=== PATIENT | male | born 1970 | race Caucasian/White ===

== ENCOUNTER 2024-08-09 04:26 | Emergency (ER) | payer OTHER ==
[2024-08-09] MEDS: Diphtheria,Pertussis(Acell),Tetanus Vaccine 0.5 ML Syringe IM ONE (05:45)
[2024-08-09] MEDS: Lidocaine 1% 10 ML MDV INJECT ONE (05:46)
[2024-08-09] MEDS: Bacitracin Oint 1 GM U/D Packet TOP ONE (05:46)
== END 2024-08-09 07:24 | disposition home or self-care (01) ==
LOC: JP.ED 04:26
DX: S01.112A Laceration without foreign body of left eyelid and periocular area, initial encounter (principal); I10 Essential (primary) hypertension; E66.9 Obesity, unspecified; Z68.43 Body mass index [BMI] 50.0-59.9, adult; Z79.899 Other long term (current) drug therapy; W25.XXXA Contact with sharp glass, initial encounter; V89.2XXA Person injured in unspecified motor-vehicle accident, traffic, initial encounter; Z23 Encounter for immunization
CPT/HCPCS: 12011; 12041; 90471; 90715; 99283; 99283-25

== ENCOUNTER 2024-09-01 07:20 | Day surgery (SDC) | payer OTHER ==
[~2024-09-01 07:20] MED LIST: Midazolam 1 MG/ML 2 ML SDV ONE; Propofol 200 MG/20 ML SDV ONE; fentaNYL 100 MCG/2 ML SDV ONE
[2024-09-01] MEDS: Lactated Ringers 1,000 ML IV SCH (08:16)
[2024-09-01] MEDS ORDERED: Propofol 200 MG/20 ML SDV ONE ×2 (08:38→08:52)
== END 2024-09-01 10:37 | disposition home or self-care (01) ==
LOC: JP.SDS 07:20
PROVIDERS: ATTEND Surgery
DX: Z12.11 Encounter for screening for malignant neoplasm of colon (principal); D12.2 Benign neoplasm of ascending colon; D12.5 Benign neoplasm of sigmoid colon; D12.3 Benign neoplasm of transverse colon; D12.0 Benign neoplasm of cecum; I10 Essential (primary) hypertension; E11.9 Type 2 diabetes mellitus without complications
CPT/HCPCS: 00811; 45385; 88305; J2250; J2704; J3010; J7120